=== PATIENT | female | born 1995 ===

== ENCOUNTER 2019-08-16 03:11 | Inpatient (IN) ==
[2019-08-16] MEDS ORDERED: ONDANSETRON 4 MG/2 ML VIAL IV PRN (03:24)
[2019-08-16] MEDS ORDERED: LACTATED RINGERS 1,000 ML IV SCH (03:30)
[2019-08-16] MEDS ORDERED: PENICILLIN G POTASSIUM INJ 6,000,000 UNIT in SODIUM CHLORIDE 0.9% 100 ML IV SCH (04:00)
[2019-08-16] MEDS ORDERED: PENICILLIN G POTASSIUM INJ 6,000,000 UNIT in SODIUM CHLORIDE 0.9% 100 ML IV ONE ×2 (04:00→05:00)
[2019-08-16 04:10] LABS: Basophils % 0.3 % (0.0-0.8); Eosinophils # 0.1 10*3/uL (0.0-0.87); Eosinophils % 1.8 % (0.00-10.9); Hematocrit 28.9 VOL% (35.7-47.0); Hemoglobin 9.3 GM/DL (12.0-16.0); Immature Granulocytes Absolute 0.07 #; Lymphocytes # 1.3 10*3/uL (1.4-4.0); Lymphocytes % 18.4 % (21.3-54.2); Mean Corpuscular HGB Conc 32.2 GM/DL (32-36); Mean Corpuscular Volume 80.1 FL (87-102); Mean Platelet Volume 9.9 FL (9.6-12.0); Monocytes % 7.2 % (1.7-12.7); Neutrophils % 71.3 % (38.7-73.9); Platelet Count 197 T/CUMM (130-400); Red Blood Count 3.61 MC/CUMM (3.8-5.5); Red Cell Distribution Width 13.1 % (9.3-17.3); White Blood Count 7.1 T/CUMM (4-12)
[2019-08-16 04:26] LABS: Albumin 2.3 G/DL (3.4-5.0); Bilirubin,Total 0.4 MG/DL (0.2-1.0); Calcium 7.9 MG/DL (8.5-10.1); Osmolality,Calculated 279.3 MOS/KG (273-304); Total Protein 6.3 G/DL (6.4-8.3)
[2019-08-16 05:49] LABS: Hepatitis B Surface Ag Quant 0.16 Index; Hepatitis B Surface Ag Result Negative (Negative)
[2019-08-16] MEDS: OXYTOCIN/LR 20 UNIT/1,000 ML BAG IV PRN ×2 (05:52→11:30)
[2019-08-16 06:19] LABS: HIV Antigen/Antibody Result Nonreactive (Nonreactive); Rubella Antibody IgG 8.4 IU/ML
[2019-08-16] MEDS ORDERED: BUTORPHANOL 2 MG/ML VIAL IV PRN (07:15)
[2019-08-16] MEDS ORDERED: PENICILLIN G POTASSIUM INJ 3,000,000 UNIT in SODIUM CHLORIDE 0.9% 100 ML IV SCH (08:00)
[2019-08-16] MEDS ORDERED: miSOPROStoL 200 MCG TABLET ONE (09:04)
[2019-08-16] MEDS ORDERED: BUTORPHANOL 1 MG/ML VIAL ONE (09:04)
[2019-08-16] MEDS ORDERED: CARBOPROST TROMETHAMINE 250 MCG/ML AMP IM ONE (09:05)
[2019-08-16] MEDS ORDERED: METHYLERGONOVINE 0.2 MG/1 ML AMP ONE (09:05)
[2019-08-16] MEDS ORDERED: OXYTOCIN 10 UNIT/ML VIAL ONE (09:50)
[2019-08-16] MEDS ORDERED: LIDOCAINE 1% 50 ML VIAL ONE (09:56)
[2019-08-16] MEDS: KETOROLAC 30 MG/1 ML VIAL IV SCH ×3 (10:48→22:09)
[2019-08-16] MEDS ORDERED: miSOPROStoL 200 MCG TABLET VAG ONE (17:18)
[2019-08-16] MEDS ORDERED: IBUPROFEN 800 MG TABLET PO PRN (18:43)
[2019-08-16] MEDS ORDERED: ACETAMINOPHEN 500 MG TABLET PO PRN (18:45)
[2019-08-16] MEDS ORDERED: BENZOCAINE 20%/MENTHOL 0.5% SPRAY 56 GM CAN TOP PRN (18:46)
[2019-08-16] MEDS: DOCUSATE SODIUM 100 MG CAPSULE PO SCH (20:22)
[2019-08-17] MEDS: ACETAMINOPHEN 500 MG TABLET PO SCH ×4 (02:41→20:33)
[2019-08-17] MEDS: KETOROLAC 30 MG/1 ML VIAL IV SCH (03:43)
[2019-08-17 07:46] LABS: Basophils % 0.3 % (0.0-0.8); Eosinophils # 0.1 10*3/uL (0.0-0.87); Eosinophils % 1.1 % (0.00-10.9); Hematocrit 21.5 VOL% (35.7-47.0); Immature Granulocytes % 1.1 %; Immature Granulocytes Absolute 0.08 #; Lymphocytes # 1.4 10*3/uL (1.4-4.0); Lymphocytes % 19.6 % (21.3-54.2); Mean Corpuscular HGB Conc 31.6 GM/DL (32-36); Mean Corpuscular Volume 80.8 FL (87-102); Mean Platelet Volume 10.6 FL (9.6-12.0); Monocytes % 8.3 % (1.7-12.7); Neutrophils % 69.6 % (38.7-73.9); Platelet Count 179 T/CUMM (130-400); Red Blood Count 2.66 MC/CUMM (3.8-5.5); Red Cell Distribution Width 13.3 % (9.3-17.3); White Blood Count 7.1 T/CUMM (4-12)
[2019-08-17 07:50] LABS: Hemoglobin 6.8 GM/DL (12.0-16.0)
[2019-08-17] MEDS: DOCUSATE SODIUM 100 MG CAPSULE PO SCH ×2 (09:54→20:32)
[2019-08-17] MEDS ORDERED: SODIUM CHLORIDE 0.9% 1,000 ML IV PRN (10:39)
[2019-08-17] MEDS ORDERED: diphenhydrAMINE CAP 50 MG CAPSULE PO ONE (10:40)
[2019-08-18] MEDS: ACETAMINOPHEN 500 MG TABLET PO SCH ×4 (01:54→19:53)
[2019-08-18 05:35] LABS: Basophils % 0.5 % (0.0-0.8); Eosinophils # 0.2 10*3/uL (0.0-0.87); Eosinophils % 2.3 % (0.00-10.9); Hematocrit 28.9 VOL% (35.7-47.0); Hemoglobin 9.4 GM/DL (12.0-16.0); Immature Granulocytes % 3.1 %; Immature Granulocytes Absolute 0.23 #; Lymphocytes # 1.8 10*3/uL (1.4-4.0); Lymphocytes % 24.6 % (21.3-54.2); Mean Corpuscular HGB Conc 32.5 GM/DL (32-36); Mean Corpuscular Volume 80.7 FL (87-102); Mean Platelet Volume 9.8 FL (9.6-12.0); NRBC # 0.02 10*3/uL; Neutrophils % 63.5 % (38.7-73.9); Platelet Count 182 T/CUMM (130-400); Red Blood Count 3.58 MC/CUMM (3.8-5.5); Red Cell Distribution Width 13.9 % (9.3-17.3); White Blood Count 7.4 T/CUMM (4-12)
[2019-08-18] MEDS ORDERED: MEASLES/MUMPS/RUBELLA VACCINE 0.5 ML VIAL SUBCUT ONE (10:55)
[2019-08-18 12:58] LABS: Basophils % 0.4 % (0.0-0.8); Eosinophils # 0.2 10*3/uL (0.0-0.87); Eosinophils % 2.5 % (0.00-10.9); Hematocrit 30.1 VOL% (35.7-47.0); Hemoglobin 9.8 GM/DL (12.0-16.0); Immature Granulocytes % 1.7 %; Immature Granulocytes Absolute 0.14 #; Lymphocytes # 1.2 10*3/uL (1.4-4.0); Lymphocytes % 14.7 % (21.3-54.2); Mean Corpuscular HGB Conc 32.6 GM/DL (32-36); Mean Corpuscular Volume 80.9 FL (87-102); Mean Platelet Volume 10.2 FL (9.6-12.0); Monocytes % 6.5 % (1.7-12.7); Neutrophils % 74.2 % (38.7-73.9); Platelet Count 207 T/CUMM (130-400); Red Blood Count 3.72 MC/CUMM (3.8-5.5); White Blood Count 8.3 T/CUMM (4-12)
[2019-08-18 13:08] LABS: INR 0.8; Partial Thromboplastin Time 24.5 SECS (20.8-36.0)
[2019-08-18 13:19] LABS: Alanine Aminotransferase 19 U/L (13-56); Albumin 2.1 G/DL (3.4-5.0); Alkaline Phosphatase 176 U/L (45-117); Aspartate Amino Transferase 28 U/L (0-37); Bilirubin,Total < 0.39 MG/DL (0.2-1.0); Blood Urea Nitrogen 9 MG/DL (7-18); Calcium 8.1 MG/DL (8.5-10.1); Estimated Glom Filtration Rate 137 ML/MIN; Glucose 79 MG/DL (74-106); Osmolality,Calculated 278.3 MOS/KG (273-304); Total Protein 5.8 G/DL (6.4-8.3); Uric Acid 5.3 MG/DL (2.6-6.0)
[2019-08-18 13:59] LABS: Apearance,Urine CLEAR (Clear); Bilirubin,Urine Negative (Negative); Blood, Urine Moderate mg/dL (Negative); Glucose,Urine (UA) Negative (Negative); Ketones,Urine Negative (Negative); Mucus,Urine Occasional /LPF (Occasional); Nitrite,Urine Negative (Negative); Protein,Urine Negative; RBC,Urine 53 /HPF (0-4); Urine Color Colorless (Yellow); Urine Specific Gravity 1.006 (1.001-1.035); Urine Urobilinogen < 2.0 EU/DL (0.2-1.0); WBC,Urine 4 /HPF (0-6)
[2019-08-18] MEDS: DOCUSATE SODIUM 100 MG CAPSULE PO SCH ×2 (18:12→20:06)
[2019-08-19] MEDS: ACETAMINOPHEN 500 MG TABLET PO SCH ×2 (02:44→17:53)
[2019-08-19 07:40] VITALS: BP 135/90
[2019-08-19] MEDS: DOCUSATE SODIUM 100 MG CAPSULE PO SCH (10:15)
== END 2019-08-19 11:20 | disposition home or self-care (01) | DRG 560 ==
LOC: N.LDOUT 03:11 → N.LD 03:13 → N.OB 18:03
PROVIDERS: ADMIT Obstetrics & Gynecology; ATTEND Obstetrics & Gynecology

== ENCOUNTER 2022-05-11 05:13 | Inpatient (IN) ==
[2022-05-11] MEDS ORDERED: BUTORPHANOL 1 MG/ML VIAL IV PRN (05:33)
[2022-05-11] MEDS ORDERED: ONDANSETRON 4 MG/2 ML VIAL IV PRN (05:33)
[2022-05-11] MEDS ORDERED: miSOPROStoL 200 MCG TABLET RECTAL PRN (05:33)
[2022-05-11] MEDS ORDERED: LACTATED RINGERS 500 ML IV PRN (05:33)
[2022-05-11] MEDS ORDERED: OXYTOCIN/LR 20 UNIT/1,000 ML BAG IV ONE ×2 (05:33→13:40)
[2022-05-11] MEDS ORDERED: CARBOPROST TROMETHAMINE 250 MCG/ML AMP IM PRN (05:33)
[2022-05-11] MEDS ORDERED: MEPERIDINE 50 MG/1 ML VIAL IV PRN (05:33)
[2022-05-11] MEDS ORDERED: METHYLERGONOVINE 0.2 MG/1 ML AMP IM PRN (05:33)
[2022-05-11] MEDS ORDERED: LACTATED RINGERS 250 ML IV ONE (05:33)
[2022-05-11] MEDS ORDERED: MEPERIDINE 25 MG/1 ML VIAL IV PRN (05:33)
[2022-05-11] MEDS ORDERED: ACETAMINOPHEN 500 MG TABLET PO PRN (05:33)
[2022-05-11] MEDS ORDERED: TRANEXAMIC ACID 1,000 MG in SODIUM CHLORIDE 0.9% 100 ML IV PRN (05:33)
[2022-05-11] MEDS ORDERED: BUTORPHANOL 2 MG/ML VIAL IV PRN (05:33)
[2022-05-11] MEDS ORDERED: LACTATED RINGERS 1,000 ML IV SCH (06:00)
[2022-05-11] MEDS ORDERED: OXYTOCIN/LR 20 UNIT/1,000 ML BAG IV SCH (06:00)
[2022-05-11 06:11] LABS: Basophils % 0.3 % (0.0-0.8); Eosinophils # 0.1 10*3/uL (0.0-0.87); Eosinophils % 0.7 % (0.00-10.9); Hematocrit 31.9 VOL% (35.7-47.0); Hemoglobin 10.5 GM/DL (12.0-16.0); Immature Granulocytes % 1.2 %; Immature Granulocytes Absolute 0.09 #; Lymphocytes # 1.5 10*3/uL (1.4-4.0); Lymphocytes % 20.9 % (21.3-54.2); Mean Corpuscular HGB Conc 32.9 GM/DL (32-36); Mean Corpuscular Volume 79.4 FL (87-102); Mean Platelet Volume 10.4 FL (9.6-12.0); Monocytes # 0.5 10*3/uL (0.11-0.8); Monocytes % 6.4 % (1.7-12.7); Neutrophils % 70.5 % (38.7-73.9); Platelet Count 265 T/CUMM (130-400); Red Blood Count 4.02 MC/CUMM (3.8-5.5); Red Cell Distribution Width 12.4 % (9.3-17.3); White Blood Count 7.4 T/CUMM (4-12)
[2022-05-11] MEDS ORDERED: AMPICILLIN INJ 2,000 MG in SODIUM CHLORIDE 0.9% 100 ML IV ONE (06:21)
[2022-05-11 06:36] LABS: Alanine Aminotransferase 28 U/L (13-56); Albumin 2.4 G/DL (3.4-5.0); Alkaline Phosphatase 180 U/L (45-117); Aspartate Amino Transferase 29 U/L (0-37); Bilirubin,Total < 0.39 MG/DL (0.20-1.00); Blood Urea Nitrogen 11 MG/DL (7-18); Calcium 8.9 MG/DL (8.5-10.1); Carbon Dioxide 22 MMOL/L (21-32); Chloride 106 MMOL/L (98-107); Glucose 141 MG/DL (74-106); Osmolality,Calculated 273.8 MOS/KG (273-304); Potassium 3.7 MMOL/L (3.5-5.1); Sodium 137 MMOL/L (136-145); Total Protein 6.9 G/DL (6.4-8.2)
[2022-05-11 06:57] LABS: Mucus,Urine Moderate /LPF (Occasional); RBC,Urine 1 /HPF (0-4); Squamous Epithelial Cell,Urine Occasional /HPF (0-10)
[2022-05-11 06:58] LABS: Bilirubin,Urine Small mg/dL (Negative); Blood, Urine Negative (Negative); Glucose,Urine (UA) Negative (Negative); Ketones,Urine 15 mg/dL (Negative); Nitrite,Urine Negative (Negative); Protein,Urine 30 mg/dL (Negative); Urine Appearance Clear (Clear); Urine Color Yellow (Yellow); Urine Specific Gravity 1.025 (1.001-1.035); Urine Urobilinogen 0.2 eU/dL (<2.0)
[2022-05-11] MEDS ORDERED: TRANEXAMIC ACID 1,000 MG/10 ML VIAL ONE (10:02)
[2022-05-11] MEDS ORDERED: miSOPROStoL 200 MCG TABLET ONE (10:02)
[2022-05-11] MEDS ORDERED: SODIUM CHLORIDE 0.9% 0 ML IV ONE (10:02)
[2022-05-11] MEDS ORDERED: METHYLERGONOVINE 0.2 MG/1 ML AMP ONE (10:03)
[2022-05-11] MEDS ORDERED: CARBOPROST TROMETHAMINE 250 MCG/ML AMP IM ONE (10:03)
[2022-05-11] MEDS ORDERED: AMPICILLIN INJ 1,000 MG in SODIUM CHLORIDE 0.9% 100 ML IV SCH (10:30)
[2022-05-11 11:17] LABS: Cord Arterial Blood HCO3 21.4 MMOL/L
[2022-05-11 11:20] LABS: Cord Venous Blood PCO2 47.4 MMHG; Cord Venous Blood PO2 33.8
[2022-05-11] MEDS ORDERED: LANOLIN 50% CREAM 0.3 OZ TUBE TOP PRN (13:40)
[2022-05-11] MEDS ORDERED: RHO(D) IMMUNE GLOBULIN 300 MCG SYRINGE IM ONE (13:40)
[2022-05-11] MEDS ORDERED: BISACODYL 10 MG SUPP RECTAL PRN (13:40)
[2022-05-11] MEDS ORDERED: MEASLES/MUMPS/RUBELLA VACCINE 0.5 ML VIAL SUBCUT ONE (13:40)
[2022-05-11] MEDS ORDERED: BENZOCAINE 20%/MENTHOL 0.5% SPRAY 56 GM CAN TOP PRN (13:40)
[2022-05-11] MEDS ORDERED: DIPH/TET/ACEL PERT BOOSTER VACCINE 0.5 ML VIAL IM ONE (13:40)
[2022-05-11] MEDS ORDERED: WITCH HAZEL PADS 100/JAR TOP PRN (13:40)
[2022-05-11] MEDS ORDERED: ACETAMINOPHEN 325 MG TABLET PO PRN (13:40)
[2022-05-11] MEDS ORDERED: HYDROCORTISONE 2.5% RECTAL CREAM 30 GM TUBE TOP PRN (13:40)
[2022-05-11] MEDS: IBUPROFEN 800 MG TABLET PO PRN (19:23)
[2022-05-11] MEDS: oxyCODONE/ACETAMINOPHEN 5-325 MG TABLET PO PRN (20:27)
[2022-05-11] MEDS: DOCUSATE SODIUM 100 MG CAPSULE PO SCH (21:43)
[2022-05-12 04:33] LABS: Basophils % 0.5 % (0.0-0.8); Eosinophils # 0.1 10*3/uL (0.0-0.87); Eosinophils % 0.8 % (0.00-10.9); Hemoglobin 9.2 GM/DL (12.0-16.0); Immature Granulocytes % 1.2 %; Immature Granulocytes Absolute 0.09 #; Lymphocytes # 1.9 10*3/uL (1.4-4.0); Lymphocytes % 25.5 % (21.3-54.2); Mean Corpuscular HGB Conc 32.9 GM/DL (32-36); Mean Corpuscular Volume 79.8 FL (87-102); Mean Platelet Volume 10.1 FL (9.6-12.0); Monocytes # 0.5 10*3/uL (0.11-0.8); Monocytes % 6.5 % (1.7-12.7); Neutrophils % 65.5 % (38.7-73.9); Platelet Count 206 T/CUMM (130-400); Red Blood Count 3.51 MC/CUMM (3.8-5.5); Red Cell Distribution Width 12.4 % (9.3-17.3); White Blood Count 7.6 T/CUMM (4-12)
[2022-05-12] MEDS: IBUPROFEN 800 MG TABLET PO PRN ×2 (08:51→23:57)
[2022-05-12] MEDS: DOCUSATE SODIUM 100 MG CAPSULE PO SCH ×2 (08:51→21:17)
[2022-05-12] MEDS: oxyCODONE/ACETAMINOPHEN 5-325 MG TABLET PO PRN (23:57)
[2022-05-13] MEDS: IBUPROFEN 800 MG TABLET PO PRN ×2 (08:36→13:59)
[2022-05-13] MEDS: oxyCODONE/ACETAMINOPHEN 5-325 MG TABLET PO PRN ×2 (08:37→13:58)
[2022-05-13 08:43] LABS: Rubella Antibody IgG Result Reactive (NonReactive)
[2022-05-13 09:15] VITALS: BP 111/71
[2022-05-13] MEDS: DOCUSATE SODIUM 100 MG CAPSULE PO SCH (09:15)
== END 2022-05-13 14:40 | disposition home or self-care (01) | DRG 807 ==
LOC: N.LD 05:13 → N.OB 13:14
PROVIDERS: ADMIT Obstetrics & Gynecology; ATTEND Obstetrics & Gynecology